=== PATIENT | female | born 1955 | race Caucasian/White ===

== ENCOUNTER 2022-03-28 06:15 | Day surgery (SDC) | payer BC, SELFPAY ==
[2022-03-21 14:57] VITALS: BMI 28.3
--- NOTE | 2022-03-27 09:00 | HO.ANESPROP2 ---
Documented by User: Chiquita Abdullahi NP 03/27/22 09:00 HPI - Anesthesia Eval Consult details Narrative: 66yo F for Colonoscopy PMFSH Past Medical History Medical History Asthma Hiatal hernia Numbness and tingling of right arm Seasonal allergies Surgical History Surgical History Hx of colonoscopy Social History Social History Are you a primary college and career counselor to a significant other at home: No Do you presently have visiting nurse or other home services: No Patient Tobacco Use Status: Former Tobacco user Quit Date: 2018 Tobacco use type: Cigarette Use of substances other than those prescribed or required for medical reasons: No Have you been hit, kicked, punched, or otherwise hurt by someone within the past year? If so, by whom?: No Are you DNR?: No Advance Directives: No Advance Directives Information Provided: Yes Advance Directives on File: No Recently lost weight without trying: No Meds Allergies Allergy/AdvReac Type Severity Reaction Status Date / Time sulindac [From Clinor[place]] Allergy Severe Hives, sob Verified 03/28/22 06:27 aspirin Allergy Unknown advised to Uncoded 03/21/22 14:55 avoid penicillin Allergy Unknown Hives Uncoded 03/21/22 14:55 Home Medications Medication Instructions Recorded Confirmed Last Taken Type loratadine 10 mg tablet (Claritin) 10 mg PO DAILY 03/21/22 03/28/22 Unknown History Exam Exam Date and Time: March 27, 2022 0900 Height,Weight and Vital Signs: Height 5 ft 3 in Weight 72.575 kg Assessment and Plan Assessment Anesthesia Assessment: Chart Reviewed Documented by User: Aníbal Brooks MD 04/06/22 21:49 HPI - Anesthesia Eval Consult details Narrative: 66yo F for Colonoscopy RLE andRUE pain and numbness COUNT INCLUDES THE [facility] Past Medical History Medical History Asthma Hiatal hernia Numbness and tingling of right arm Seasonal allergies Functional capacity: independent ambulation Family History Family history of problems with anesthesia: No Surgical History Surgical History Hx of colonoscopy History of Problems with Anesthesia: No Social History Social History Are you a primary college and career counselor to a significant other at home: No Do you presently have visiting nurse or other home services: No Patient Tobacco Use Status: Former Tobacco user Quit Date: 2018 Tobacco use type: Cigarette Use of substances other than those prescribed or required for medical reasons: No Have you been hit, kicked, punched, or otherwise hurt by someone within the past year? If so, by whom?: No Are you DNR?: No Advance Directives: No Advance Directives Information Provided: Yes Advance Directives on File: No Recently lost weight without trying: No Meds Allergies Allergy/AdvReac Type Severity Reaction Status Date / Time sulindac [From Clinoril] Allergy Severe Hives, sob Verified 03/28/22 06:27 aspirin Allergy Unknown advised to Uncoded 03/21/22 14:55 avoid penicillin Allergy Unknown Hives Uncoded 03/21/22 14:55 Home Medications Medication Instructions Recorded Confirmed Last Taken Type loratadine 10 mg tablet (Claritin) 10 mg PO DAILY 03/21/22 03/28/22 Unknown History Exam Airway Mallampati Class: III TM Dist: >3cm Neck ROM: Full Loose/Missing/Broken Teeth: Yes (Chipped teeth) Heart: S1,S2 Lungs: b/l breath sounds Assessment and Plan Assessment Anesthesia Assessment: Anesthesia Plan Discussed Final Anesthetic Review Family History of Problems with Anesthesia: No History of Problems with Anesthesia: No NPO: Yes ASA Class: II Final Preanesthetic Review: Meds/Allgs Chart Reviewed, Consent Obtained/Reviewed and Anes Risks/Benef Reviewed Patient Risk: Intermediate Procedure Risk: Intermediate Anesthetic Plan Anesthetic Plan: MAC: Disposition: Standard PACU
[2022-03-28 06:31] VITALS: BP 101/70; PULSE 77; RESP 15; TEMP 36.9; O2SAT 97
[2022-03-28] MEDS: Lactated Ringers 1,000 ML 100 ML IVCONT (06:49)
--- NOTE | 2022-03-28 07:28 | MHC.SHP ---
Pre-Procedural Eval Section A Date of Service: 03/28/22 The patient is an INPATIENT: No Changes since office visit: No Cold of Flu in the past 2 weeks, No New Medical Problems, No Changes in Medication and No Patient answered all questions The History & Physical has been completed within 30 days and I have reviewed it.: Yes Section B Chief Complaint: screening Allergies: Allergies Allergy/AdvReac Type Severity Reaction Status Date / Time sulindac [From Clinoril] Allergy Severe Hives, sob Verified 03/28/22 06:27 aspirin Allergy Unknown advised to Uncoded 03/21/22 14:55 avoid penicillin Allergy Unknown Hives Uncoded 03/21/22 14:55 Plan I have reviewed the history and physical and performed a pertinent physical examination on my patient. No changes have occurred unless specified.
--- NOTE | 2022-03-28 07:56 | PM.OP ---
Brief Operative Note Date of Service: 03/28/22 Pre-op diagnosis: screening Post-op diagnosis: same Procedure: colonoscopy Surgeon: Cruzito Islas Anesthesia: MAC Was an Food Service Order Clerk used for this Procedure?: No Estimated blood loss (mL): 0 Pathology: none sent Condition: stable Disposition: PACU
[2022-03-28 08:03] VITALS: BP 90/50; PULSE 79; RESP 17; TEMP 36.3; O2SAT 99
[2022-03-28 08:18] VITALS: BP 105/60; PULSE 73; RESP 16; TEMP 36.3; O2SAT 99
--- NOTE | 2022-03-28 16:02 | OP_ITS ---
SURGEON: Cruzito Islas MD INDICATIONS: Colon cancer screening. PREOPERATIVE DIAGNOSIS: POSTOPERATIVE DIAGNOSIS: PROCEDURE PERFORMED: Colonoscopy to the terminal ileum. ESTIMATED BLOOD LOSS: COMPLICATIONS: ANESTHESIA: ASSISTANTS: SPECIMENS: MEDICATIONS: Monitored anesthesia care. DESCRIPTION OF PROCEDURE: History and physical were performed. The risks and benefits of the procedure were explained to the patient. An informed consent was obtained. The patient was placed in left lateral decubitus position. A digital rectal exam was performed and was found to be normal. The Olympus pediatric video colonoscope was introduced into the rectum and advanced to the cecum without difficulty. The cecum was identified by transillumination, palpation, and identification of ileocecal valve. Examination was performed and the scope was removed. She tolerated the procedure well and was taken to recovery area in stable condition. FINDINGS: The terminal ileum was normal. The visualized colonic mucosa was normal. The quality of the prep was good. No polyps were identified. Retroflexed examination showed small internal hemorrhoids and hypertrophic anal papillae. There was mild sigmoid diverticulosis. IMPRESSION: Normal colonoscopy. RECOMMENDATION: 1. Follow up as needed. 2. Repeat colonoscopy is recommended in 10 years for average risk individuals. MD EDWIN Rhodes/RICK / [id number] MTDD
== END 2022-03-28 08:35 | disposition home or self-care (01) ==
PROVIDERS: PCP Nurse Practitioner Family; Visit Provider Internal Medicine Gastroenterology
PROC: 0DJD8ZZ Inspection of Lower Intestinal Tract, Via Natural or Artificial Opening Endoscopic (ICD-10-PCS; CPT 45378; principal; 2022-03-28 07:30)
DX: Z12.11 Encounter for screening for malignant neoplasm of colon (principal); Z83.71 Family history of colonic polyps; K57.30 Diverticulosis of large intestine without perforation or abscess without bleeding; K62.89 Other specified diseases of anus and rectum; K64.8 Other hemorrhoids; G43.909 Migraine, unspecified, not intractable, without status migrainosus; J30.2 Other seasonal allergic rhinitis; E04.1 Nontoxic single thyroid nodule; G03.9 Meningitis, unspecified; A63.0 Anogenital (venereal) warts; Z87.891 Personal history of nicotine dependence; Z79.899 Other long term (current) drug therapy; Z88.0 Allergy status to penicillin; Z88.2 Allergy status to sulfonamides
CPT/HCPCS: 45378